=== PATIENT | male | born 1975 | race Caucasian/White ===

== ENCOUNTER 2023-02-16 22:42 | Inpatient (IN) | payer OTHER, SELFPAY ==
--- NOTE | 2023-02-16 23:56 | PC.ADMIT ---
Addendum entered by Mary Nassar RN 02/17/23 00:02: pt says he has not drank any alcohol and does not feel like he withdrawing. Original Note: pt is a 47 year old male who came of [facility] experiencing paranoia and imsomnia. pt has a PMH of alcohol use disorder, schizoaffective disorder and prior hospitalizations. during admission, pt was pleasant and signed all legals. pt signed a CV. pt had many questions about the unit. pt expressed interest in treatment. pt reports he has back pain that is treated with methylprednisolone 4mg. pt reports he needs back surgery and has frequent pain. start treatment plan and safety plan
[2023-02-17] MEDS: Cyclobenzaprine HCl 10 MG TABLET PO ×3 (01:02→21:16)
[2023-02-17] MEDS: Nicotine Polacrilex Lozenge 2 MG LOZENGE BUCCAL ×2 (01:03→21:16)
[2023-02-17] MEDS: Ibuprofen 800 MG TABLET PO ×3 (01:10→21:17)
[2023-02-17 08:00] VITALS: BP 138/92; PULSE 77; RESP 16; TEMP 36.4; O2SAT 97
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
[2023-02-17] MEDS: Omeprazole 20 MG CAPSULE.DR PO (13:01)
[2023-02-17] MEDS: methylPREDNISolone 4 MG TABLET PO ×4 (13:01→21:17)
[2023-02-17] MEDS: Lidocaine 4 % Patch ADH..PATCH 1 PATCH TRANSDERMA (13:02)
[2023-02-17] MEDS: LORazepam 1 MG TABLET PO ×2 (16:31→21:16)
[2023-02-17] MEDS: Acetaminophen 325 MG TABLET 975 MG PO (16:32)
[2023-02-17 18:00] VITALS: BP 122/78; PULSE 90; RESP 24; TEMP 36.6; O2SAT 99
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
--- NOTE | 2023-02-17 19:26 | PC.NURSE ---
Hospitalist consult placed per CAW for Severe back pain. Dr. Sung notified via [place] Text.
[2023-02-17] MEDS: hydrOXYzine HCL 25 MG TABLET PO (21:17)
[2023-02-18 09:24] VITALS: BP 145/97; PULSE 66; RESP 18; TEMP 36.2; O2SAT 98
[2023-02-18] MEDS: Acetaminophen 325 MG TABLET 975 MG PO ×3 (09:46→20:55)
[2023-02-18] MEDS: methylPREDNISolone 4 MG TABLET PO ×3 (09:47→20:56)
[2023-02-18] MEDS: Ibuprofen 800 MG TABLET PO ×3 (09:47→20:56)
[2023-02-18] MEDS: Lidocaine 4 % Patch ADH..PATCH 1 PATCH TRANSDERMA (09:47)
[2023-02-18] MEDS: Gabapentin 300 MG CAPSULE PO ×2 (11:43→20:56)
[2023-02-18] MEDS: Lidocaine 4 % Cream KIT 1 APPL TOPICAL (11:44)
[2023-02-18] MEDS: Cyclobenzaprine HCl 10 MG TABLET PO (13:50)
[2023-02-18] MEDS: LORazepam 1 MG TABLET PO (18:14)
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
[2023-02-18 20:35] VITALS: BP 130/96; PULSE 66; RESP 18; TEMP 36; O2SAT 96
[2023-02-18] MEDS: traZODone HCL 50 MG TABLET PO (22:38)
[2023-02-19 07:40] VITALS: BP 141/92; PULSE 59; RESP 18; TEMP 36.2; O2SAT 97
[2023-02-19] MEDS: Omeprazole 20 MG CAPSULE.DR PO (09:05)
[2023-02-19] MEDS: Acetaminophen 325 MG TABLET 975 MG PO ×3 (09:05→21:11)
[2023-02-19] MEDS: methylPREDNISolone 4 MG TABLET PO ×2 (09:05→17:10)
[2023-02-19] MEDS: Multivitamin TABLET 1 TAB PO (09:06)
[2023-02-19] MEDS: Ibuprofen 800 MG TABLET PO ×3 (09:06→21:11)
[2023-02-19] MEDS: Gabapentin 300 MG CAPSULE PO ×2 (09:06→21:11)
[2023-02-19] MEDS: Lidocaine 4 % Patch ADH..PATCH 1 PATCH TRANSDERMA (09:11)
[2023-02-19] MEDS: Lidocaine 4 % Cream KIT 1 APPL TOPICAL (09:11)
[2023-02-19] MEDS: LORazepam 1 MG TABLET PO (11:39)
--- NOTE | 2023-02-19 16:52 | P.PNPSI_ITS ---
Subjective Subjective Date of Service: 02/19/23 Reason For Visit: Schizoafftective Disorder Subjective Notes: Conditional Voluntary Healthcare Proxy: No Guardianship: No Medical Problems Affecting Mental Status: No Interim History: Reviewed in team. Pt visable in milieu. Continues to express concern about diagnosis and meds. Pt able to sleep. Team report they observe some anxiety, ?paranoia, perceptual alterations at times. Pt refuses all psychotropic meds. Attending Groups: Intermittent Review of Systems Acute medical concerns: No Medical Review of Systems: unchanged Mental Status Exam Mental Status Exam Patient Appearance: Appropriate Patient Orientation: Person, Place, Time and Situation Level of Consciousness: Awake and Alert Patient Behavior: Talkative, Cooperative and Good Eye Contact Mood Description: Depressed and Anxious Affect Description: Flat Patient Cognition Impaired: No Ability to Follow Directions: Good Speech Pattern: Spontaneous Speech Memory Description: Intact Hallucinations: None Delusions: Not Present Perceptual Disturbances: Depersonalization Thought Process: Rumination Thought Content: positive for Perseveration Depressive Symptoms: Low Self Esteem Abnormal Motor Activity Signs and Symptoms: Restlessness Judgement: Fair Diagnostics Vital Signs (24Hr): Vital Signs - 24 hr 02/18/23 20:35 02/19/23 07:40 Temperature 96.8 F 97.2 F Pulse Rate 66 59 Respiratory Rate 18 18 Blood Pressure 130/96 H 141/92 H Pulse Oximetry 96 97 Oxygen Delivery Method Room Air Room Air Medications Medications Current Medications Acetaminophen (Acetaminophen 325 Mg Tablet) 975 mg PO TID [facility] Last Admin: 02/19/23 15:53 Dose: 975 mg Al Hydroxide/Mg Hydroxide (Magnesium Hydrox/Alum Hydrox 30 Ml Oral.Susp) 30 ml PO Q6H PRN PRN Reason: Heartburn/Nausea Cyclobenzaprine HCl (Cyclobenzaprine Hcl 10 Mg Tablet) 10 mg PO BID PRN PRN Reason: Muscle Spasm Last Admin: 02/18/23 13:50 Dose: 10 mg Gabapentin (Gabapentin 300 Mg Capsule) 300 mg PO BID [facility] Last Admin: 02/19/23 09:06 Dose: 300 mg Hydroxyzine HCl (Hydroxyzine Hcl 25 Mg Tablet) 25 mg PO Q6H PRN PRN Reason: Anxiety Last Admin: 02/17/23 21:17 Dose: 25 mg Ibuprofen (Ibuprofen 800 Mg Tablet) 800 mg PO TID [facility] Last Admin: 02/19/23 15:53 Dose: 800 mg Lidocaine (Lidocaine 4 % Patch Adh..Patch) 1 patch TRANSDERMA DAILY [facility]; Protocol Last Admin: 02/19/23 09:11 Dose: 1 patch Lidocaine HCl (Lidocaine 4 % Cream Kit) 1 appl TOPICAL DAILY [facility] Last Admin: 02/19/23 09:11 Dose: 1 appl Lorazepam (Lorazepam 1 Mg Tablet) 1 mg PO BID PRN PRN Reason: anxiety/sleep Last Admin: 02/19/23 11:39 Dose: 1 mg Magnesium Hydroxide (Milk Of Magnesia 30 Ml Oral.Susp) 30 ml PO DAILY PRN PRN Reason: Constipation Methylprednisolone (Methylprednisolone 4 Mg Tablet) 4 mg PO BIDWM [facility] Stop: 02/19/23 17:01 Last Admin: 02/19/23 09:05 Dose: 4 mg Methylprednisolone (Methylprednisolone 4 Mg Tablet) 4 mg PO DAILY [facility] Stop: 02/20/23 08:01 Multivitamins/Vitamin C (Multivitamin Tablet) 1 tab PO DAILY [facility] Last Admin: 02/19/23 09:06 Dose: 1 tab Nicotine Polacrilex (Nicotine Polacrilex Lozenge 2 Mg Lozenge) 2 mg BUCCAL Q2H PRN PRN Reason: Nicotine Cravings Last Admin: 02/17/23 21:16 Dose: 2 mg Olanzapine (Olanzapine Odt 10 Mg Tab.Rapdis) 10 mg TRANSLINGU Q6H PRN PRN Reason: agitation Omeprazole (Omeprazole 20 Mg Capsule.Dr) 20 mg PO DAILY@0630 [facility] Last Admin: 02/19/23 09:05 Dose: 20 mg Trazodone HCl (Trazodone Hcl 50 Mg Tablet) 50 mg PO BEDTIME MRX1 PRN PRN Reason: Insomnia Last Admin: 02/18/23 22:38 Dose: 50 mg Allergies Allergies Allergy/AdvReac Type Severity Reaction Status Date / Time penicillamine Allergy Unknown Verified 02/17/23 00:49 Penicillins Allergy Unknown Verified 02/17/23 00:49 Assessment & Plan Assessment & Plan (1) Schizophrenia, paranoid type: Status: Acute Code(s): F20.0 - Paranoid schizophrenia Assessment and Plan: 02/18/23 Collateral contact to assist pt in safe discharge planning. 02/20/12 Collateral contact to assist pt in safe discharge planning. Plan Pt is a 47-year-old male with a PMH significant for?sciatica, alcohol use disorder, and schizoaffective disorder who is admitted to [facility] psychiatry unit for paranoia and insomnia. Medical consult for admission H&P. Patient complains of intense burning pain in lower back radiating down the backs of his legs with movement that has been ongoing intermittently for the past few years. Mood disorder Plan as per psychiatry Sciatica/lower back pain radiating to legs Continue ibuprofen, Flexeril, lidocaine patches, and steroids Will add gabapentin 300 mg bid Consider orthopedics consult if pt's symptoms refractory to current treatment Pt should f/u outpatient with ortho and pain clinic Thank you for allowing us to participate in the care of this patient. Signing off at this time. Please let us know if there are any acute complaints or questions. Informed Consent: understands Reason for continued inpatient stay Substantial Risk for: rapid decompensation Time Spent With Patient Time: Total time managing care of this patient today ____ minutes.
[2023-02-19 18:35] VITALS: BP 136/94; PULSE 67; RESP 18; TEMP 36.7; O2SAT 94
[2023-02-19] MEDS: traZODone HCL 50 MG TABLET PO (22:25)
[2023-02-20] MEDS: Omeprazole 20 MG CAPSULE.DR PO (06:22)
[2023-02-20 08:05] VITALS: BP 144/83; PULSE 78; RESP 18; TEMP 36.3; O2SAT 95
[2023-02-20] MEDS: Multivitamin TABLET 1 TAB PO (09:07)
[2023-02-20] MEDS: Acetaminophen 325 MG TABLET 975 MG PO ×3 (09:07→20:12)
[2023-02-20] MEDS: Gabapentin 300 MG CAPSULE PO ×2 (09:08→20:13)
[2023-02-20] MEDS: Ibuprofen 800 MG TABLET PO ×3 (09:08→20:15)
[2023-02-20] MEDS: Lidocaine 4 % Cream KIT 1 APPL TOPICAL (09:10)
[2023-02-20] MEDS: methylPREDNISolone 4 MG TABLET PO (09:11)
[2023-02-20] MEDS: LORazepam 1 MG TABLET PO ×2 (10:53→21:07)
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
[2023-02-20 18:00] VITALS: BP 161/89; PULSE 62; RESP 18; TEMP 36.2; O2SAT 18
[2023-02-20] MEDS: Nicotine Polacrilex Lozenge 2 MG LOZENGE BUCCAL ×2 (18:20→20:35)
[2023-02-20] MEDS: Cyclobenzaprine HCl 10 MG TABLET PO (20:13)
[2023-02-20] MEDS: traZODone HCL 50 MG TABLET PO (21:07)
[2023-02-21] MEDS: Omeprazole 20 MG CAPSULE.DR PO (06:31)
[2023-02-21 08:10] VITALS: BP 146/83; PULSE 82; RESP 18; TEMP 36.2; O2SAT 97
[2023-02-21] MEDS: LORazepam 1 MG TABLET PO ×3 (10:31→18:15)
[2023-02-21] MEDS: Ibuprofen 800 MG TABLET PO ×2 (10:31→18:14)
[2023-02-21] MEDS: Multivitamin TABLET 1 TAB PO (10:31)
[2023-02-21] MEDS: Lidocaine 4 % Cream KIT 1 APPL TOPICAL (10:32)
[2023-02-21] MEDS: Nicotine Polacrilex Lozenge 2 MG LOZENGE BUCCAL (16:35)
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
[2023-02-21 18:00] VITALS: BP 135/85; PULSE 82; RESP 18; TEMP 36.5; O2SAT 97
[2023-02-21] MEDS: Cyclobenzaprine HCl 10 MG TABLET PO (18:14)
[2023-02-21] MEDS: Acetaminophen 325 MG TABLET 975 MG PO (18:14)
[2023-02-21] MEDS: Gabapentin 300 MG CAPSULE PO (18:15)
[2023-02-21] MEDS: traZODone HCL 50 MG TABLET PO (22:24)
[2023-02-22] MEDS: Omeprazole 20 MG CAPSULE.DR PO (06:08)
[2023-02-22 08:15] VITALS: BP 112/79; PULSE 71; RESP 18; TEMP 36.2; O2SAT 95
[2023-02-22] MEDS: Lidocaine 4 % Cream KIT 1 APPL TOPICAL (09:12)
[2023-02-22] MEDS: Acetaminophen 325 MG TABLET 975 MG PO ×3 (09:13→20:29)
[2023-02-22] MEDS: Ibuprofen 800 MG TABLET PO ×3 (09:14→20:29)
[2023-02-22] MEDS: Gabapentin 300 MG CAPSULE PO ×2 (09:14→20:29)
[2023-02-22] MEDS: Multivitamin TABLET 1 TAB PO (09:15)
[2023-02-22] MEDS: LORazepam 1 MG TABLET PO ×2 (09:21→22:44)
[2023-02-22] MEDS: Cyclobenzaprine HCl 10 MG TABLET PO (13:26)
[2023-02-22 18:00] VITALS: BP 139/85; PULSE 85; RESP 18; TEMP 36.5; O2SAT 95
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
[2023-02-22] MEDS: traZODone HCL 50 MG TABLET PO (22:35)
[2023-02-23 06:00] VITALS: BP 136/86; PULSE 62; RESP 16; O2SAT 97
[2023-02-23] MEDS: Omeprazole 20 MG CAPSULE.DR PO (08:37)
[2023-02-23] MEDS: Acetaminophen 325 MG TABLET 975 MG PO (09:29)
[2023-02-23] MEDS: Ibuprofen 800 MG TABLET PO (09:30)
[2023-02-23] MEDS: Multivitamin TABLET 1 TAB PO (09:30)
[2023-02-23] MEDS: Gabapentin 300 MG CAPSULE PO (09:30)
[2023-02-23] MEDS: Lidocaine 4 % Cream KIT 1 APPL TOPICAL (09:30)
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
== END 2023-02-23 12:00 | disposition home or self-care (01) | DRG 750 ==
PROVIDERS: Admitting Provider Psychiatry & Neurology Psychiatry; Visit Provider Social Worker
DX: F20.0 Paranoid schizophrenia (principal); Z79.899 Other long term (current) drug therapy; Z87.891 Personal history of nicotine dependence

== ENCOUNTER → 2023-02-16 22:42 | Outpatient (BNV) | payer OTHER, SELFPAY | PROVIDERS: Admitting Provider Psychiatry & Neurology Psychiatry; Visit Provider Clinical Nurse Specialist Psychiatric/Mental Health, Adult | DX: F20.0 Paranoid schizophrenia (principal) | CPT/HCPCS: 90792; 99231; 99232; 99238 ==

== ENCOUNTER → 2023-02-16 22:42 | Outpatient (BNV) | payer OTHER, SELFPAY | PROVIDERS: Admitting Provider Psychiatry & Neurology Psychiatry; Visit Provider Student in an Organized Health Care Education/Training Program | DX: Z02.2 Encounter for examination for admission to residential institution (principal) | CPT/HCPCS: 99429 ==